=== PATIENT | female | born 1960 | race African-American/Black ===

== ENCOUNTER 2021-08-19 12:08 | Emergency (ER) | payer BC, OTHER ==
--- OUTSIDE RECORDS SUMMARY | 2021-08-19 12:10 | XMS REPORT | Continuity of Care Document ---
:1960 Author Organization [facility] t Address [address] [place] [address] Care Team Providers Name Role Phone Referred Attending Clinician Unavailable Aric Castellanos Attending Clinician Unavailable Carl SMITH, R Attending Clinician MD FELIX GARCIA Attending Clinician Unavailable RADHA Attending Clinician Unavailable Referred Admitting Clinician Unavailable Physician, Primary or Family Admitting Clinician UnavailMD FELIX Araujo Admitting Clinician Unavailable Payers Payer Name Policy Type Policy Number Effective Date Expiration Date S ource Problems Condition Condition Condition Status Onset Resolution Last Treating Co mments Source Name Details Category Date Date Treatment Clinician Date Trigger Trigger Disease Active 2016-08 [facility] finger of finger of - Lu ege left thumb left thumb 00:00: of 00 Medicin e Trigger Trigger Disease Active 2016-08 [facility] finger, finger, 09-30 College left ring left ring 00:00: of finger finger 00 Medicin e Allergies, Adverse Reactions, Alerts Allergy Allergy Status Severity Reaction(s) Onset Inactive Treating Comm ents Source Name Type Date Date Clinician No Known DA Active [facility] [place] Social History Social Habit Start Date Stop Date Quantity Comments Source Sex Assigned At [facility] llege of Medicine Tobacco use and 2020-06-08 2020-06-08 Never used [facility] llege exposure 00:00:00 00:00:00 of Medicine Alcohol intake 2020-06-08 2020-06-08 Current [facility] Col lege 00:00:00 00:00:00 non-drinker of of Medicin e alcohol (finding) Smoking Status Start Date Stop Date Source Never smoker [facility] o f Medicine Medications Ordered Filled Start Stop Current Ordering Indication Dosage Frequency Signature Comments Components Source Medication Medication Date Date Medication? Clinician (SIG) Name Name aspirin EC 2019-08 Yes 81mg Take 81 mg B aylor 81 MG TBEC 08-08 by mouth. Lu ege 19:27: of 58 Medicin e Calcium 2019-08 Yes Take by [facility] Carbonate-V 08-08 mouth. [place] strong itamin D 19:27: of (SM CALCIUM 58 Medicin 500/VITAMIN e D3) 500-400 MG-UNIT TABS Glucosamine 2019-08 Yes Take by ylor Sulfate 500 08-08 mouth. [place] e MG TABS 19:27: of 58 Medicin e IRON OR 2019-08 Yes Take by [facility] 08-08 mouth. [place] 19:27: of 58 Medicin e Aspirin 2019-08 Yes 81mg Take 81 mg [facility] Buf,CaCarb- 08-08 by mouth. Col lege MgCarb-MgO, 19:27: of 81 MG TABS 58 Medicin e metformin 2019-08 Yes 500mg Take 500 [place] [facility] (GLUCOPHAGE 1-04 mg by [place] ) 500 MG 19:27: mouth. of tablet 58 Medicin e Multiple 2019-08 Yes Take by [place] [facility] Vitamins-Mi 08-08 mouth. [place] strong nerals 19:27: of (MULTIVITAM 58 Medicin IN & e MINERAL) LIQD gabapentin Yes TAKE 1 [facility] (NEURONTIN) 9-22 TABLET BY Col lege 600 MG 00:00: MOUTH of tablet 00 EVERY DAY Medicin AT BEDTIME e SHINGRIX 50 2017-08 Yes [facility] MCG SUSR 0 [place] 00:00: of 00 Medicin e rosuvastati 2017-08 Yes [facility] n (CRESTOR) 0 [place] 10 MG 00:00: of tablet 00 Medicin e cyclobenzap 2016-08 Yes [facility] rine 09-03 [place] (FLEXERIL) 00:00: of 10 MG 00 Medicin tablet e duloxetine 2016-08 Yes [facility] (CYMBALTA) 1-30 College 30 MG 00:00: of capsule 00 Medicin e ofloxacin 2016-08 Yes [facility] (FLOXIN) 1-30 College 0.3 % otic 00:00: of solution 00 Medicin e amoxicillin 2016-08 Yes [facility] -clavulanat 1-29 College e 00:00: of (AUGMENTIN) 00 Medicin 875-125 MG e per tablet hydrochloro 2016-08 Yes [facility] thiazide 1-21 College 12.5 MG 00:00: of TABS 00 Medicin e Diclofenac 2016-08 Yes [facility] Sodium 1.5 1-09 College % SOLN 00:00: of 00 Medicin e gabapentin Yes [facility] (NEURONTIN) 6-19 [place] 300 MG 00:00: of capsule 00 Medicin e hydrochloro Yes [facility] thiazide 5-11 College 12.5 MG 00:00: of TABS 00 Medicin e Procedures This patient has no known procedures. Plan of Care Planned Activity Planned Date Details Comments Source Future Scheduled ORT - XR HAND BILAT Ordered: [facility] or [place] Test 3V (CHARGE ONLY) 06/08/2020 of Medicine [code = 73830] Future Scheduled COLON CANCER [facility] Lu ege Test SCREENING: of Medicine COLONOSCOPY [code = COLON CANCER SCREENING: COLONOSCOPY] Future Scheduled MAMMOGRAM ANNUAL [facility] Test [code = MAMMOGRAM of Medicin e ANNUAL] Future Scheduled TETANUS SHOT (ADULT) [facility] College Test [code = TETANUS SHOT of Medi cine (ADULT)] Future Scheduled BMI FOLLOW UP PLAN [facility] r College Test [code = BMI FOLLOW of Medici ne UP PLAN] Future Scheduled HEPATITIS C [facility] Lu ege Test SCREENING [code = of Medicin e HEPATITIS C SCREENING] Future Scheduled HIV SCREENING [code [place] [facility] College Test = HIV SCREENING] of Medicine Future Scheduled CERVICAL CANCER [facility] C ollege Test SCREENING 3 YEAR of Medicine FOLLOW UP [code = CERVICAL CANCER SCREENING 3 YEAR FOLLOW UP] Future Scheduled ZOSTER VACCINE (1 of [place] [facility] College Test 2) [code = ZOSTER of Medicin e VACCINE (1 of 2)] Future Scheduled FLU VACCINE > 6 Postponed from [facility] Test MONTHS [code = FLU 03/05/2020 of Medici ne VACCINE > 6 MONTHS] (Postpone Reason: Patient declined today) Encounters Start End Encounter Admission Attending Care Care Encounter Source Date/Time Date/Time Type Type Clinicians Facility Department ID 2021-08-04 2021-08-04 Outpatient DENISE Patel [facility] [id number] [id number] [facility] 12:00:00 12:00:00 Self [id number] [facility] [place] 2020-07-11 2020-07-11 Outpatient DENISE Corbett [facility] [id number] -20 [facility] 12:00:00 12:00:00 Emanuel, [id number] [facility] 2020-06-08 2020-06-08 Office Carl, ANGELA [id number] [facility] 13:11:32 15:10:13 Visit Narayan R AMBULATOR [id number] College Y [id number] of [id number] Medi [facility] 600 e 2020-06-08 2020-06-08 Office Carl, ANGELA [id number] 13:11:32 15:10:13 Visit Narayan R AMBULATOR [id number] Y [id number] 2020-05-24 2020-05-24 Outpatient SICKLER, [facility] [id number] 00:00:00 00:00:00 DELMIS [address] 2019-07-06 2019-07-06 Outpatient DENISE Corbett [facility] [id number] - [facility] 12:00:00 12:00:00 Emanuel, [id number] [facility] n[facility] Results Test Description Test Time Test Comments Results Result Comments Source SARS-CoV-2 (COVID-19) RNA [Presence] in Respiratory sp ecimen by 2020-05-24 22:18:00 TRENA with probe detection Test Item Value Reference Range Interpretation Comme nts SARS-CoV-2 (COVID-19) RNA [Presence] in Respiratory Not detected No t-Detected specimen by TRENA with probe detection (test code = 61981-4) [id number] 14:17:00 Test Item Value Reference Range Interpretation Comments HEMOGLOBIN (BEAKER) (test code = 13.3 GM/DL 11.2-15.7 410) [id number] 13:49:00 Test Item Value Reference Range Interpretation Comments SODIUM (BEAKER) (test code = 381) 143 meq/L 136-145 POTASSIUM (BEAKER) (test code = 4.4 meq/L 3.5-5.1 379) CHLORIDE (BEAKER) (test code = 382) 104 meq/L 98-107 CO2 (BEAKER) (test code = 355) 29 meq/L 22-29 BUN AND [id number] 13:49:00 Test Item Value Reference Range Interpretation Comments BLOOD UREA NITROGEN 20 mg/dL 7-21 (BEAKER) (test code = 354) CREATININE (BEAKER) 0.88 mg/dL 0.57-1.25 (test code = 358) EGFR (BEAKER) (test 80 mL/min/1.73 ESTIMA RICK GFR IS code = 1092) sq m NOT ACCURATE CREATININE CLEARANCE IN PREDICTING GLOMERULAR FILTRATION RATE . ESTIMATED GFR I S NOT APPLICABLE FOR DIALYSIS PATIEN TS.
--- NOTE | 2021-08-19 13:49 | EDPHYS ---
Physician Documentation [facility] Name: Sivan Thomas Age: 61 yrs Sex: Female : 1960 Arrival Date: 08/19/2021 Time: 12:17 Bed 11 Private MD: ED Physician Zion Seay HPI: 08/19 13:41 This 61 yrs old Black Female presents to ER via Ambulatory with complaints of Covid +. raphael 13:41 The patient has shortness of breath with light activity. Onset: The symptoms/episode raphael began/occurred 3 day(s) ago. Duration: The symptoms are continuous, and are steadily getting worse. The patient's shortness of breath is aggravated by coughing, is alleviated by nothing. The patient or guardian reports cough, difficulty breathing, flu symptoms, arthralgias, low-grade fever, myalgias. Modifying factors: The symptoms are alleviated by elevating head, the symptoms are aggravated by activity, cold environment. Associated signs and symptoms: Pertinent positives: non-productive cough, fever. Historical: - Allergies: 12:28 No Known Allergies; iw - Home Meds: 12:28 gabapentin oral [Active]; unknwn BP med [Active]; unknown cholesterol med [Active]; iw - PMHx: 12:28 Hypertensive disorder; Hypercholesterolemia; iw - PSHx: 12:28 None; iw - Immunization history:: Client reports having NOT received the Covid vaccine. - Social history:: Smoking status: Patient denies any tobacco usage or history of. - Family history:: not pertinent. ROS: 13:41 Eyes: Negative for injury, pain, redness, and discharge, ENT: Negative for injury, raphael pain, and discharge, Neck: Negative for injury, pain, and swelling, Cardiovascular: Negative for chest pain, palpitations, and edema, Respiratory: Negative for shortness of breath, cough, wheezing, and pleuritic chest pain, Abdomen/GI: Negative for abdominal pain, nausea, vomiting, diarrhea, and constipation, Back: Negative for injury and pain, : Negative for injury, bleeding, discharge, and swelling, Skin: Negative for injury, rash, and discoloration, Neuro: Negative for headache, weakness, numbness, tingling, and seizure, Psych: Negative for depression, anxiety, suicide ideation, homicidal ideation, and hallucinations, Allergy/Immunology: Negative for hives, rash, and allergies, Endocrine: Negative for neck swelling, polydipsia, polyuria, polyphagia, and marked weight changes, Hematologic/Lymphatic: Negative for swollen nodes, abnormal bleeding, and unusual bruising. 13:41 Constitutional: Positive for body aches, chills, fever, malaise. Exam: 13:41 Head/Face: Normocephalic, atraumatic. Eyes: Pupils equal round and reactive to light, raphael extra-ocular motions intact. Lids and lashes normal. Conjunctiva and sclera are non-icteric and not injected. Cornea within normal limits. Periorbital areas with no swelling, redness, or edema. ENT: Nares patent. No nasal discharge, no septal abnormalities noted. Tympanic membranes are normal and external auditory canals are clear. Oropharynx with no redness, swelling, or masses, exudates, or evidence of obstruction, uvula midline. Mucous membranes moist. Neck: Trachea midline, no thyromegaly or masses palpated, and no cervical lymphadenopathy. Supple, full range of motion without nuchal rigidity, or vertebral point tenderness. No Meningismus. Chest/axilla: Normal chest wall appearance and motion. Nontender with no deformity. No lesions are appreciated. Cardiovascular: Regular rate and rhythm with a normal S1 and S2. No gallops, murmurs, or rubs. Normal PMI, no JVD. No pulse deficits. Abdomen/GI: Soft, non-tender, with normal bowel sounds. No distension or tympany. No guarding or rebound. No evidence of tenderness throughout. Back: No spinal tenderness. No costovertebral tenderness. Full range of motion. Skin: Warm, dry with normal turgor. Normal color with no rashes, no lesions, and no evidence of cellulitis. MS/ Extremity: Pulses equal, no cyanosis. Neurovascular intact. Full, normal range of motion. Neuro: Awake and alert, GCS 15, oriented to person, place, time, and situation. Cranial nerves II-XII grossly intact. Motor strength 5/5 in all extremities. Sensory grossly intact. Cerebellar exam normal. Normal gait. Psych: Awake, alert, with orientation to person, place and time. Behavior, mood, and affect are within normal limits. 13:41 Respiratory: mild respiratory distress is noted, Respirations: normal, no acute changes, Breath sounds: rhonchi, are not appreciated, Respiratory rate: 16 Vital Signs: 12:26 BP 113 / 79; Pulse 99; Resp 16; Temp 100.4; Pulse Ox 98% on R/A; Weight 65.77 kg; iw Height 5 ft. 2 in. (157.48 cm); 14:14 BP 127 / 81; Pulse 87; Resp 17; Pulse Ox 99% on R/A; Pain 0/10; ab2 12:26 Body Mass Index 26.52 (65.77 kg, 157.48 cm) iw MDM: 12:48 Patient medically screened. raphael 13:47 Differential diagnosis: bronchitis, flu, URI, viral Infection, bacterial infection, raphael URI, bronchitis, UTI. Antibiotic administration: The patient is discharged and will get outpatient antibiotics, Zithromax. The patient's Wells Deep Vein Thrombosis Score was calculated as follows: Total Score: 0-2 Pts- Low Risk. The patient's pulmonary embolism risk score was calculated as follows: Total Score: 0-2 points. This patient was found to be at low risk for a pulmonary embolism by using the Well's assessment criteria. Immunization status: Influenza vaccine: Data reviewed: vital signs, nurses notes. Data interpreted: quality assurance monitor body: rate is 99 beats/min, rhythm is regular, Pulse oximetry: on room air is 98 %. Counseling: I had a detailed discussion with the patient and/or guardian regarding: the historical points, exam findings, and any diagnostic results supporting the discharge/admit diagnosis, the need for outpatient follow up, for definitive care, a family practitioner. Administered Medications: 14:14 Drug: Aspirin Chewable Tablet 324 mg Route: PO; ab2 14:22 Follow up: Response: No adverse reaction ab2 14:14 Drug: Zithromax (azithromycin) 500 mg Route: PO; ab2 14:22 Follow up: Response: No adverse reaction ab2 14:14 Drug: Tylenol 1000 mg Route: PO; ab2 14:22 Follow up: Response: No adverse reaction ab2 14:14 Drug: Pepcid (famotidine) 40 mg Route: PO; ab2 14:22 Follow up: Response: No adverse reaction ab2 Disposition Summary: 08/19/21 13:49 Discharge Ordered Location: Home raphael Problem: new raphael Symptoms: have improved raphael Condition: Stable raphael Diagnosis - Coronavirus infection, unspecified raphael - Fever, unspecified raphael - Acute upper respiratory infection, unspecified raphael Followup: raphael - With: Private Physician - When: 2 - 3 days - Reason: Recheck today's complaints, Continuance of care, Re-evaluation by your physician Followup: raphael - With: Kurtis Calvin MD - When: 2 - 3 days - Reason: Recheck today's complaints, Re-evaluation by your physician Discharge Instructions: - Discharge Summary Sheet raphael - Fever, Adult raphael - Upper Respiratory Infection, Adult raphael - Upper Respiratory Infection, Adult, Qxra-[id number] [facility] - Aspirin and Your Heart [facility] - Cough, Adult [facility] - COVID-19 [facility] - COVID-19 Frequently Asked Questions [facility] - Things You Can Do to Manage Your COVID-19 Symptoms at Home - [facility] - COVID-19: Quarantine vs. Isolation - [facility] Forms: - Medication Reconciliation Form [facility] - Thank You Letter [facility] - Antibiotic Education [facility] - Prescription Opioid Use [facility] Prescriptions: - albuterol sulfate 90 mcg/actuation Inhalation HFA aerosol inhaler - inhale 2 puff by INHALATION route every 4-6 hours; 1 Pump; Refills: 0, Product [facility] Selection Permitted - ivermectin 3 mg Oral tablet - take 5 tablet by ORAL route once daily; 15 tablet; Refills: 0, Product [facility] Selection Permitted - Pepcid 20 mg Oral Tablet - take 1 tablet by ORAL route every 12 hours for 30 days; 60 tablet; Refills: 0, [facility] Product Selection Permitted - Singulair 10 mg Oral Tablet - take 1 tablet by ORAL route At bedtime; 30 tablet; Refills: 0, Product [facility] Selection Permitted - Zithromax 500 mg Oral Tablet - take 1 tablet by ORAL route once daily for 5 days; 5 tablet; Refills: 0, [facility] Product Selection Permitted Signatures: Zion Seay MD MD cha Williams, Irene, RN RN iw Bleininger, Alexis ab2
--- NOTE | 2021-08-19 13:49 | ER ---
Nurse's Notes [facility] Name: Sivan Thomas Age: 61 yrs Sex: Female : 1960 Arrival Date: 08/19/2021 Time: 12:17 Bed 11 Private MD: Diagnosis: Coronavirus infection, unspecified;Fever, unspecified;Acute upper respiratory infection, unspecified Presentation: 08/19 12:26 Chief complaint: Patient states: tested positive for COVID last night at [facility] , is just feeling very nauseated and is aching and has headache. Coronavirus screen: Client presents with at least one sign or symptom that may indicate coronavirus-19. Ebola Screen: Patient negative for fever greater than or equal to 101.5 degrees Fahrenheit, and additional compatible Ebola Virus Disease symptoms Patient denies exposure to infectious person. Patient denies travel to an Ebola-affected area in the 21 days before illness onset. No symptoms or risks identified at this time. Initial Sepsis Screen: Does the patient meet any 2 criteria? No. Patient's initial sepsis screen is negative. Does the patient have a suspected source of infection? No. Patient's initial sepsis screen is negative. Risk Assessment: Do you want to hurt yourself or someone else? Patient reports no desire to harm self or others. Onset of symptoms was August 17, 2020. 12:26 Method Of Arrival: Ambulatory 12:26 Acuity: DELON 4 iw Historical: - Allergies: 12:28 No Known Allergies; iw - Home Meds: 12:28 gabapentin oral [Active]; unknwn BP med [Active]; unknown cholesterol med [Active]; iw - PMHx: 12:28 Hypertensive disorder; Hypercholesterolemia; iw - PSHx: 12:28 None; iw - Immunization history:: Client reports having NOT received the Covid vaccine. - Social history:: Smoking status: Patient denies any tobacco usage or history of. - Family history:: not pertinent. Screenin:35 Abuse screen: Denies threats or abuse. Denies injuries from another. Nutritional ab2 screening: No deficits noted. Tuberculosis screening: No symptoms or risk factors identified. Fall Risk None identified. Assessment: 12:33 General: Appears in no apparent distress. comfortable, Behavior is calm, cooperative, ab2 appropriate for age. Pain: Complains of pain in generalized Pain currently is 4 out of 10 on a pain scale. Quality of pain is described as aching. Neuro: No deficits noted. Level of Consciousness is awake, alert, obeys commands, Oriented to person, place, time, situation, Appropriate for age Customer Agent are equal bilaterally Moves all extremities. Gait is steady, Speech is normal. Cardiovascular: No deficits noted. Denies chest pain, shortness of breath, Heart tones S1 S2 present Patient's skin is warm and dry. Respiratory: No deficits noted. Airway is patent Breath sounds are clear bilaterally. GI: Reports nausea, vomiting, Patient currently denies. : No deficits noted. No signs and/or symptoms were reported regarding the genitourinary system. EENT: No deficits noted. No signs and/or symptoms were reported regarding the EENT system. Derm: No deficits noted. No signs and/or symptoms reported regarding the dermatologic system. Musculoskeletal: No deficits noted. No signs and/or symptoms reported regarding the musculoskeletal system. Vital Signs: 12:26 BP 113 / 79; Pulse 99; Resp 16; Temp 100.4; Pulse Ox 98% on R/A; Weight 65.77 kg; iw Height 5 ft. 2 in. (157.48 cm); 14:14 BP 127 / 81; Pulse 87; Resp 17; Pulse Ox 99% on R/A; Pain 0/10; ab2 12:26 Body Mass Index 26.52 (65.77 kg, 157.48 cm) iw ED Course: 12:17 Patient arrived in ED. ds1 12:28 Triage completed. iw 12:29 Arm band placed on. iw 12:33 Shorty Altman is Primary Nurse. ab2 12:35 Patient has correct armband on for positive identification. Bed in low position. Call ab2 light in reach. Side rails up X2. 12:35 No provider procedures requiring assistance completed. ab2 12:48 Zion Seay MD is Attending Physician. raphael 13:49 Kurtis Calvin MD is Referral Physician. raphael 14:23 Patient did not have IV access during this emergency room visit. ab2 Administered Medications: 14:14 Drug: Aspirin Chewable Tablet 324 mg Route: PO; ab2 14:22 Follow up: Response: No adverse reaction ab2 14:14 Drug: Zithromax (azithromycin) 500 mg Route: PO; ab2 14:22 Follow up: Response: No adverse reaction ab2 14:14 Drug: Tylenol 1000 mg Route: PO; ab2 14:22 Follow up: Response: No adverse reaction ab2 14:14 Drug: Pepcid (famotidine) 40 mg Route: PO; ab2 14:22 Follow up: Response: No adverse reaction ab2 Outcome: 13:49 Discharge ordered by MD. lim 14:22 Discharged to home ab2 14:22 Condition: good 14:22 Discharge instructions given to patient, Instructed on discharge instructions, follow up and referral plans. medication usage, Demonstrated understanding of instructions, follow-up care, medications, Prescriptions given X 4. 14:23 Patient left the ED. ab2 Signatures: Zion Seay MD MD cha Sanford, Demi ds1 Divya Nam, DES RN Shorty Capone ab2
[2021-08-19] MEDS ORDERED: ACETAMINOPHEN 500 MG TAB ONE (14:12)
[2021-08-19] MEDS ORDERED: FAMOTIDINE 20 MG TAB ONE (14:12)
[2021-08-19] MEDS ORDERED: ASPIRIN 81 MG CHEWABLE TABLET ONE (14:12)
[2021-08-19] MEDS ORDERED: AZITHROMYCIN 250 MG TAB ONE (14:12)
[2021-08-19 14:36] VITALS: TEMP 100.4
[2021-08-19 14:37] VITALS: BP 127/81; O2SAT 99
== END 2021-08-19 14:23 | disposition home or self-care (01) ==
LOC: ER 12:08
DX: U07.1 COVID-19 (principal); J98.8 Other specified respiratory disorders; I10 Essential (primary) hypertension; E78.00 Pure hypercholesterolemia, unspecified
CPT/HCPCS: 99283